=== PATIENT | male | born 1975 | race African-American/Black ===

== ENCOUNTER 2021-07-21 18:32 | Inpatient (IN) | payer OTHER ==
[~2021-07-21] VITALS: Ht 167.6 cm; Wt 74.6 kg
--- NOTE | ~2021-07-21 | EMS ---
[address] [address] EMS Patient Care Report Name: NARENDRA DUFFY Room #: PRE M.R.#: [id number] Admission: Attend Phys: Discharge: Date of : 79 Report #: [id number] THIS REPORT FOR: //name// Report Transmitted: 07/21/2021 17:58 EMS Care Summary [facility]ident [id number] @ 07/21/2021 17:50 Incident Location [address] [place] [address] Patient NARENDRA DUFFY Male, 45 Years 1975 Patient Address [address] [place] [id number] Patient History Hypertension (HTN), Patient Allergies No known allergies, Patient Medications None Reported, Chief Complaint Weakness Disposition Transported No Lights/Archer Dispatch Reason Allergic Reaction/Stings Transported To [facility] Narrative Called to the scene for allergies. Risa Ferrara responded and arrived on scene to find a 45 year old male A&Ox3 complaining of weakness and numbness in his face and right fingers. He stated he has had this feeling a long time ago but never went to the doctor before and that it was a long time ago. [facility] [address] [place] [address] EMS Patient Care Report Name: NARENDRA DUFFY Room #: [facility] Brittany#: [id number] Admission: Attend Phys: Discharge: Date of : 79 Report #: [id number] The patients vitals where obtained and maintained. An adult assessment was completed and a stroke test was performed (negative). I started an IV and did a blood glucose test. The patient had good glass technologist, no drift, but his left eye was slightly droopy. The abnormal complaint was the tingling in his right fingers. The patient stated he had not had much fluids in the last few days and little food. The patients skin was cool to the touch but the patient stated his had just put cold compresses all over his upper body and head. The family made it very difficult to get any information on scene. The patients work of breathing was normal and skin color was normal. The patient stated he was beginning to feel better with fluids and his headache had dissipated during transport. The patient stated he did still feel a little dizzy but overall just very weak which came on suddenly at the kitchen table and had only gotten a little better since we arrived. The patient had minimal food at the dinner table this evening which was a normal weekly meal with the only thing out of the ordinary being a drink of a cocktail his brother gave him about an hour prior to calling 911, which he told me about right before we pulled into the ER. Originally I was treating for stroke on scene until after he was able to stand on his own to sit on the cot and his stroke test only had a droopy left eye. I began to treat for a possible allergic reaction watching the patients breathing and overall appearance. However, the patient stated his tingling had gone away during transport and the only thing was he was still feeling weak. The patients left eye appeared to not be as droopy as it was on scene. All information was relayed to the hospital during the radio report and again upon arrival. The patient was transported to the hospital of his choice. Patient care was transferred to the receiving nurse upon arrival. Initial Vitals @18:05P: 64,R: 16,Pain: 0/10,SpO2: 99,MD Suspected: false @17:58P: 60,R: 16,Pain: 0/10,GCS: 15,Glucose: 116,SpO2: 100,MD Suspected: false @18:20P: 60,R: 16,BP: 172/106,Pain: 0/10,GCS: 15,CO: 2,SpO2: 100,Revised Trauma: 12, @17:58P: 59,R: 16,BP: 186/105,Pain: 0/10,GCS: 15,SpO2: 99,Revised Trauma: 12, @18:11P: 60,R: 16,BP: 179/115,Pain: 0/10,GCS: 15,SpO2: 99,Revised Trauma: 12, Impression Generalized Weakness Procedures @17:58ALS AssessmentResponse: UnchangedSucceeded@18:06Normal Saline (.9% NaCl) 500cc (18 ga) Site: Antecubital-LeftResponse: UnchangedSucceeded@18:0212-Lead ECGResponse: UnchangedSucceeded@18:003-Lead ECGResponse: [address] [address] EMS Patient Care Report Name: TATINARENDRA Room #: PRE M.RElisa#: [id number] Admission: Attend Phys: Discharge: Date of : 79 Report #: [id number] UnchangedSucceeded@18:0512-Lead ECG Timeline 17:49,Call Received 17:49,Psap Call 17:50,Dispatched 17:54,En Route 17:55,Initial Responder On Scene 17:55,On Scene 17:57,At Patient 17:58,BP: / M,PULSE: 60,RR: 16 R,SPO2: 100 Ox,ETCO2: ,B,PAIN: 0,GCS: 15, 17:58,ALS Assessment,Response: UnchangedSucceeded, 17:58,BP: 186/105 M,PULSE: 59,RR: 16 R,SPO2: 99 Ox,ETCO2: ,BG: ,PAIN: 0,GCS: 15, 18:00,3-Lead ECG,Response: UnchangedSucceeded, 18:02,12-Lead ECG,Response: UnchangedSucceeded, 18:05,12-Lead ECG, 18:05,BP: / M,PULSE: 64,RR: 16 R,SPO2: 99 Ox,ETCO2: ,BG: ,PAIN: 0,GCS: , 18:06,Normal Saline (.9% NaCl) 500cc 18 ga Site: Antecubital-Left,Response: UnchangedSucceeded, 18:08,Depart Scene 18:11,BP: 179/115 M,PULSE: 60,RR: 16 R,SPO2: 99 Ox,ETCO2: ,BG: ,PAIN: 0,GCS: 15, 18:20,BP: 172/106 M,PULSE: 60,RR: 16 R,SPO2: 100 Ox,ETCO2: ,BG: ,PAIN: 0,GCS: 15, 18:24,At Destination 18:51,Call Closed Disclaimer v1.1 Copyright 2020 [employer] This EMS Care Summary contains data elements from the applicable legal record (which may be displayed differently). It is designed to provide pertinent information for the following purposes: continuity of care, clinical quality, and state data reporting. The complete legal record is available to ED staff and administrators of the receiving hospital in [employer]'s Patient Tracker. All data is provided "as is."
[2021-07-21 18:34] VITALS: BP 189/113
[2021-07-21 19:12] LABS: ABSOLUTE NEUTROPHILS 3.5 thou/uL (1.4-8.2); BASOPHILS 0.3 % (0.0-2.0); EOSINOPHILS 4.3 % (0.0-3.0); HEMATOCRIT 40.8 % (42.0-52.0); MCHC 34.4 g/dL (28.0-37.0); MCV 87.3 fL (80.0-100.0); MONOCYTES 7.9 % (1.0-8.0); PLATELET COUNT 187 thou/uL (150-400); POLYS 58.5 % (36.0-66.0); RBC 4.67 mil/uL (4.50-6.00); RDW 12.5 % (10.5-14.5); WBC 6.1 thou/uL (4.0-11.0)
[2021-07-21 19:19] LABS: CALCIUM 8.8 mg/dL (8.5-10.1); CREATININE 0.8 mg/dL (0.7-1.3); POTASSIUM 3.6 mmol/L (3.5-5.1)
[2021-07-21 19:29] LABS: ALBUMIN 3.7 g/dL (3.4-5.0); TOTAL BILIRUBIN 0.5 mg/dL (0.2-1.0); TOTAL PROTEIN 8.2 g/dL (6.4-8.2)
[2021-07-21 19:49] LABS: APTT 27.7 Seconds (24.5-32.8); INR 1.09; PROTIME 11.8 Seconds (10.5-12.1)
[2021-07-21 20:43] LABS: AMP/METHAMP Negative (Negative); BARBITURATES Negative (Negative); BENZODIAZEPINES Negative (Negative); COCAINE Negative (Negative); METHADONE Negative (Negative); OPIATES Negative (Negative); PCP Negative (Negative)
--- NOTE | 2021-07-21 23:34 | NUR ---
I SPOKE TO JENNIFER IN LAB. RESULTS OF COVID NOW SWAB ARE STILL PENDING. WILL TRANSFER TO CCU WHEN RESULTS AVAILABLE.
[2021-07-22] VITALS (8 sets, daily range): BP systolic 145–169; BP diastolic 83–105
--- NOTE | 2021-07-22 02:23 | NUR ---
ASSUMED CARE OF PT AT 0030 FROM THE ED, PT A/O X 4 AND DROWSY. ASSESSMENT COMPLETED NOTED. ADMIT NIH SCORE OF 3, NG TUBE IN PLACE IN RIGHT NARE, CLAMPED. SX IS AVAILABLE IN ROOM. PT DENIES PAIN BUT C/O NAUSEA AND DIZZINESS. PT CONTINUES TO COUGH UP THICK WHITE ORAL SECREATIONS D/T TROUBLE SWALLOWING, NO DROOLING OR APHASIA NOTED. PT HAS MILD MUMMBLED SPEECH D/T DROWSINESS. WILL CONTINUE TO WORK TOWARDS PT'S POC.
--- NOTE | 2021-07-22 03:54 | NUR ---
PROGRESS PT ALERT AND ORIENTED VERY LETHARGIC. NG TO RIGHT NARE PT SPITTING FREQUENTLY. STILL REPORTS NUMBNESS TO LEFT ARM AND HAND. NOT OOB SO FAR THIS SHIFT. BP REMAINS HIGH 156/96. NIH SCORE REMAINS 3. TELE INTACT READING SR. IV TO LAC SL FIELD STICK. IV TO LF WITH THIAMINE AND FLUSH BAG RUNNING NO URINE OUTPUT SO FAR THIS SHIFT. SCD'S AND CONTINUOUS PULSE OX APPLIED ORDERED. CONTINUE TO MONITOR.
[2021-07-22 04:37] LABS: ANION GAP 8 mmol/L (7-16); BUN 6 mg/dL (7-18); CALCIUM 8.7 mg/dL (8.5-10.1); CHLORIDE 99 mmol/L (98-107); CHOLESTEROL 225 mg/dL (<200); CO2 29 mmol/L (21-32); CREATININE 0.8 mg/dL (0.7-1.3); GLUCOSE 144 mg/dL (74-106); HDL CHOLESTEROL 47 mg/dL (>40); LDL CHOLESTEROL 171 mg/dL (<100); SODIUM 136 mmol/L (136-145); TC:HDL 4.8 Ratio (Not establshd); TRIGLYCERIDE 36 mg/dL (<150); VLDL 7 mg/dL (<40)
[2021-07-22 04:51] LABS: SERUM ASSESSMENT Clear
--- NOTE | 2021-07-22 14:29 | NUR ---
I have reviewed the documentation by Sandrita Solares from 07/22/21 to 07/22/21 and I concur with it. HELEN MARSH
--- NOTE | 2021-07-22 14:35 | NUR ---
met with patient, mother at bedside. Patient admits with dizziness/unable to swallow. 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 Patient reports and children in home. Patient reports independent with adls. Patient with ng tube. He reports once the dizziness is gone he will be indepenent. Patient reports he has health insurance and his was given wrong information from his employment. Patient reports when dizziness subsides he plans to call employment and sp with Laura. Teixeira in process of eval. Casemgt following.
--- NOTE | 2021-07-22 20:47 | NUR ---
Per TRAVEL MONEY ADVISOR, pt complaining of CP. Pt voiced pain is 2/10 sharp and dull. KOCH 2/10 pressure, radiating through Lside of face. EKG done. Dr Alcala paged. Awaiting reply.
[2021-07-23 01:06] LABS: GLYCOHEMOGLOBIN (HGB A1C) 5.7 % (4.8-5.6)
[2021-07-23 04:39] VITALS: BP 158/106
--- NOTE | 2021-07-23 06:14 | NUR ---
Pt NG tube de'd and replaced with dobhuf at 62 james. Placement confirmation pending xray reading by doc. Pt slept well this shift. PPN to LFA @ 80ml/hr. Pt's diastolic in the 100's. Per FOUNDATION DIRECTOR oncall, bolus 500ml NS. IV bolus currently infusing. Pt this am, denies KOCH and CP. Fall precaution in place. Call light within reach. Nursing to continue to monitor. Pt to transfer to ICU, pending bed availability. Call light within reach. Nursing to continue to monitor.
[2021-07-23 06:38] VITALS: BP 157/95
[2021-07-23 07:49] VITALS: BP 148/82
--- NOTE | 2021-07-23 08:04 | EKG ---
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 07/23/21 0804 [id number] 06 Jose C Marroquin MD, FACC /EPI
[2021-07-23 11:46] VITALS: BP 148/81
[2021-07-23 16:41] VITALS: BP 174/94
--- NOTE | 2021-07-23 17:22 | NUR ---
Spoke with . She has a copy of cards via email from [employer] employment. She attempted to forward email to [facility] but did not rec. She reports he has [employer] ID # [id number]. Updated utilization review. is aware 5N following wants to assure acute rehab aware.
[2021-07-23 19:52] VITALS: BP 142/82
[2021-07-24 00:11] VITALS: BP 123/72
[2021-07-24 05:09] LABS: HEMATOCRIT 44.2 % (42.0-52.0); HEMOGLOBIN 15.7 gm/dL (14.0-18.0); MCH 31.1 pg (26.0-34.0); MCHC 35.4 g/dL (28.0-37.0); MCV 87.9 fL (80.0-100.0); RBC 5.03 mil/uL (4.50-6.00); RDW 12.8 % (10.5-14.5); WBC 7.2 thou/uL (4.0-11.0)
[2021-07-24 05:53] LABS: CALCIUM 8.8 mg/dL (8.5-10.1); POTASSIUM 4.2 mmol/L (3.5-5.1)
--- NOTE | 2021-07-24 06:39 | NUR ---
Assumed pt's care beginning of this pm shift. Alert and oriented. Complained of intermittent KOCH. New 6fr dobhuff to L/nare at 63. Secured with steri strips. Placement confirmed with abd xray. Pt given tylenol and icepack for fever this am. Remains febrile. Pt performing self suctioning for sputum. Blood culture ordered. Lab called x2 to ensure culture was drawn. Pt's updated per request. Nursing to continue to monitor.
--- NOTE | 2021-07-24 06:51 | NUR ---
I have reviewed the documentation by Sandrita Solares from 07/23/21 to 07/23/21 and I concur with it. HELEN MARSH
[2021-07-24 08:37] VITALS: BP 139/83
[2021-07-24 11:00] VITALS: BP 142/79
--- NOTE | 2021-07-24 11:16 | 2DMMODE ---
[facility] [place] [address] 2 D/M-MODE ECHOCARDIOGRAM Name: NARENDRA DUFFY Room #: 215-P ADM IN M.R.#: [id number] Admission: 07/21/21 Attend Phys: Merlin Kay MD Discharge: Date of : 79 Report #: [id number] THIS REPORT FOR: cc: FAM - No family physician/PCP FAM - No family physician/PCP Rfaita Rahman MD ~ APPROVED REPORT Study performed: 07/24/2021 10:07:04 EXAM: Comprehensive 2D, Doppler, and color-flow Echocardiogram Patient Location: In-Patient Room #: 215 Status: routine BSA: 1.84 HR: 83 bpm Rhythm: NSR Other Information Study Quality: Good Indications CVA/TIA 2D Dimensions IVSd: 9.73 (7-11mm) LVOT Diam: 20.38 (18-24mm) LVDd: 38.19 mm PWd: 9.88 (7-11mm) Ascending Ao: 29.73 (22-36mm) LVDs: 27.30 (25-40mm) Left Atrium: 24.56 (27-40mm) Aortic Root: 29.66 mm Volumes Left Atrial Volume (Systole) Single Plane 4CH: 24.04 mL Aortic Valve AoV Peak Martin.: 2.60 m/s AO Peak Gr.: 27.03 mmHg LVOT Max P.06 mmHg LVOT Max V: 1.51 m/s NEERAJ Vmax: 1.89 cm2 Mitral Valve [facility] [address] [place] [address] 2 D/M-MODE ECHOCARDIOGRAM Name: TATINARENDRA Matias Room #: 215-P [facility] IN M.R.#: [id number] Admission: 07/21/21 Attend Phys: Merlin Kay, Discharge: Date of : 79 Report #: [id number] E/A Ratio: 0.8 MV Decel. Time: 380.14 ms MV E Max Martin.: 0.67 m/s MV A Martin.: 0.83 m/s MV PHT: 110.24 ms IVRT: 83.04 ms Pulmonary Valve PV Peak Martin.: 1.37 m/s PV Peak Gr.: 7.56 mmHg NH End Vmax: 1.00 m/s Tricuspid Valve TR Peak Martin.: 2.67 m/s RAP Estimate: 7.00 mmHg TR Peak Gr.: 28.45 mmHg RVSP: 35.00 mmHg Left Ventricle The left ventricle is normal size. There is normal LV segmental wall motion. There is normal left ventricular wall thickness. Left ventricular systolic function is normal. The left ventricular ejection fraction is within the normal range. LVEF is 60-65%. Right Ventricle The right ventricle is normal size. The right ventricular systolic function is normal. Atria The left atrium size is normal. Injection of bubbles documented no interatrial shunt. The right atrium size is normal. Aortic Valve The aortic valve is normal in structure. No aortic regurgitation is present. There is no aortic valvular stenosis. Mitral Valve The mitral valve is normal in structure. There is no mitral valve regurgitation noted. No evidence of mitral valve stenosis. Tricuspid Valve The tricuspid valve is normal in structure. Mild tricuspid regurgitation. Pulmonic Valve The pulmonary valve is normal in structure. There is no pulmonic valvular regurgitation. Great Vessels [facility] [address] [place] [address] 2 D/M-MODE ECHOCARDIOGRAM Name: NARENDRA DUFFY Room #: 215-P [facility] IN M.R.#: [id number] Admission: 07/21/21 Attend Phys: Merlin Kay, Discharge: Date of : 79 Report #: [id number] The aortic root is normal in size. IVC is normal in size and collapses >50% with inspiration. Pericardium There is no pericardial effusion. <Conclusion> The left ventricle is normal size. There is normal left ventricular wall thickness. Left ventricular systolic function is normal. The right ventricle is normal size. Injection of bubbles documented no interatrial shunt. The left atrium size is normal. The aortic valve is normal in structure. There is no mitral valve regurgitation noted. <ELECTRONICALLY SIGNED> By: Rafita Rahman MD 07/24/21 1116 111 1116 Rafita Rahman MD /INF
--- NOTE | 2021-07-24 11:21 | NUR ---
insurance information updated on face sheet. 5N to begin auth process. Updated patient and .
[2021-07-24 16:00] VITALS: BP 127/81
[2021-07-24 19:54] VITALS: BP 141/91
[2021-07-25 00:04] VITALS: BP 109/76
[2021-07-25 05:08] VITALS: BP 149/72
--- NOTE | 2021-07-25 06:21 | NUR ---
Assumed pt's care this pm shift. ALert and oriented x4. Meds given per emar. Dobhuff remains intact this shift. PPN to LFA @ 80ml/hr. Febrile this shift. PRN tylenol given supp this shift. Pt had 2 liquid large BMs. Up x1 to bsc. Bed change this shift. Fall precaution in place. Call light within reach. Will continue to monitor.
[2021-07-25 07:40] VITALS: BP 124/79
--- NOTE | 2021-07-25 09:53 | NUR ---
Agree with current tube feed order. If pt transfers to rehab, then change tube feed to bolus schedule of 1 can 2cal HN every 6hr with 250ml water flush 5x per day.
[2021-07-25 11:15] VITALS: BP 115/80
--- NOTE | 2021-07-25 12:13 | EKG ---
[place] [address] [address] 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: MOHINDER FONTANA : 1975 Requested By: Merlin Kay Order Number: [id number] MD: Jose C Marroquin Measurements Intervals [place] Rate: 68 P: -28 [place]: 161 QRS: 26 QRSD: 80 T: 10 QT: 414 QTc: 441 Interpretive Statements Sinus rhythm Septal infarct, age indeterminate Compared to ECG 07/22/2021 20:37:25 No significant changes Electronically Signed On 07-25-2021 12:13:02 CDT by Jose C Marroquin [email or web address] <ELECTRONICALLY SIGNED> By: Jose C Marroquin MD, [facility] 09/09/04 1213 37 37 Jose C Marroquin MD, [facility] /EPI
--- NOTE | 2021-07-25 12:13 | EKG ---
[place] [address] [facility] [place] [address] ELECTROCARDIOGRAM REPORT Name: NARENDRA DUFFY Room #: 215-P ADM IN M.R.#: [id number] Admission: 07/21/21 Attend Phys: Merlin Kay MD Discharge: Date of : 79 Report #: [id number] [facility] Test Date: 2021-07-22 Test Time: 20:37:25 Pat Name: NARENDRA DUFFY Department: Room: 215 P Gender: M [place] Support Specialist: MOHINDER FONTANA : 1975 Requested By: Merlin Kay Order Number: [id number] MD: Jose C Marroquin Measurements Intervals [place] Rate: 67 P: -7 [place]: 156 QRS: 29 QRSD: 82 T: 19 QT: 418 QTc: 442 Interpretive Statements Sinus rhythm Septal infarct, age indeterminate Compared to ECG 07/21/2021 19:07:46 No significant changes Electronically Signed On 07-25-2021 12:12:51 CDT by Jose C Marroquin [email or web address] <ELECTRONICALLY SIGNED> By: Jose C Marroquin MD, [facility] [id number] Jose C Marroquin MD, [facility] /EPI
--- NOTE | 2021-07-25 12:29 | NUR ---
Patient to rec peg tube Wednesday. 5N following and plan to seek auth once stable.
[2021-07-25 15:50] VITALS: BP 132/94
--- NOTE | 2021-07-25 17:13 | NUR ---
PT ALERT AND ORIENTED TIMES FOUR. VSS. PPN INFUSING PER ORDER. PT DENIES PAIN. SOA ON EXCERTION. RIGHT NARE DOBHOFF TUBE FEEDING STARTED PT TOLERATING WELL. PT WORKED WELL WITH PT/OT PT UP SITTING IN THE CHAIR. PT AT BEDSIDE THIS MORNING. WILL CONTINUE TO MONITOR.
[2021-07-25 19:50] VITALS: BP 131/75
[2021-07-26 00:05] VITALS: BP 119/75
--- NOTE | 2021-07-26 01:57 | NUR ---
PROGRESS PT A/O X4, UP WITH MOD ASSIST FOR SAFETY. VSS. PT'S HAS DOBHOFF IN RIGHT NARE INFUSING JEVITY 1.5 TF AT A RATE OF 20CC/HR, NO RESIDUAL NOTICED.. PPN INFUSING IN PIV IN LF AT A RATE OF 80CC/HR. PT DENIES PAIN. STATES JUST GETTING THE PPN AND TUBE FEEDING, HE FEELS MORE ENERGY AND MORE HIMSELF. VOIDING QS AND HAD ONE WATERY BROWN BM. CONTINUE POC.
--- NOTE | 2021-07-26 04:49 | NUR ---
PT HAD HEAD OF BED DOWN TO 10 DEGREES AND HAD A SMALL AMOUNT OF REFLUX. CALLED NURSE AND HE WAS AFRAID THAT TUBE FEEDING WAS IN MOUTH. DISCUSSED IMPORTANCE OF KEEPING HOB ELEVATED TO 30 DEGREES TO PROTECT HIM FROM ASPIRATION. RESIDUAL CHECKED X2 WITH NO RETURN OF TUBE FEEDING. ABDOMEN SOFT NON- TENDER AND NOT DISTENDED, PT STATES HE DOESN'T FEEL TOO FULL. BED LOCKED TO 30 DEGREES AND PT AWARE OF PRECAUTIONS.
[2021-07-26 06:17] VITALS: BP 118/77
[2021-07-26 07:12] VITALS: BP 129/77
[2021-07-26 11:27] VITALS: BP 125/76
[2021-07-26 15:07] VITALS: BP 133/70
--- NOTE | 2021-07-26 18:28 | NUR ---
Pt c/o nausea - IV zofran given per JAN. Pt reports relief. TF increased this morning from 20 to 30mL/hr, no risidual noted today. NIH scale documented per flow sheet. Pt still has some facial palsy, states he now feels tingling on his L face, denies numbness. Mild ataxia noted with LUE when asked to touch tip of nose. NIH scale 3 for each assessment today. No other neuromuscular deficits noted.
[2021-07-26 20:15] VITALS: BP 118/72
[2021-07-27 06:18] VITALS: BP 124/85
--- NOTE | 2021-07-27 06:38 | NUR ---
Up in the recliner chair at start of shift. TF infusing at 40 ml/hr. Around 0015 he called for help as he was vomiting ( clear and some yellow specks in wash cloth. Requested tube feeding to be turned off for the night as he's feeling sick of his stomach and can't tolerate it. Zofran given with good relief. He stated he got some sleep. No change in neuro status , left facial droop and decrease sensation on right side of his body. Tolerating room air well though he stated he gets short of breath with exertion. Uses yankuer to suction his mouth after coughing. He requested tube feeding to resume after he did his exercise that will require him to be on his stomach. Cont. on enhanced precaution , afebrile.
[2021-07-27 07:36] VITALS: BP 138/81
--- NOTE | 2021-07-27 08:44 | O ---
[facility] [place] [address] OPERATIVE REPORT Name: NARENDRA DUFFY Room #: 359-P ADM IN M.R.#: [id number] Admission: 07/21/21 Attend Phys: Merlin Kay MD Discharge: Date of : 79 Report #: [id number] THIS REPORT FOR: cc: FAM - No family physician/PCP FAM - No family physician/PCP Robbie Pope MD ~ DATE OF SERVICE: 07/23/2021 SURGEON: Robbie Pope MD PREOPERATIVE DIAGNOSES: 1. Rule out vocal cord dysfunction. 2. History of recent cerebrovascular accident. 3. Left medullary syndrome. POSTOPERATIVE DIAGNOSES: 1. Rule out vocal cord dysfunction. 2. History of recent cerebrovascular accident. 3. Left medullary syndrome. PROCEDURES PERFORMED: Flexible nasopharyngoscopy and laryngoscopy. INDICATIONS: The patient is a 45-year-old male who suffered a cerebrovascular event on 07/21. The patient refused TPA and has been on dual antiplatelet therapy with some improvement of symptoms. He has had significant dysphagia. I was asked to evaluate his vocal cord function. The patient has had no complaints of voice. DESCRIPTION OF PROCEDURE: In the patient's hospital room, he was placed into his bed in an upright position. Topical anesthesia was achieved with a 4% lidocaine and 1% Mono-Synephrine nasal spray. After an appropriate period, a flexible laryngoscope was introduced through the right naris and advanced into the nasopharynx. Complete examination was made of nasopharynx, oropharynx, oral cavity, hypopharynx and larynx. There was a Dobbhoff tube present in the left naris extending through the cricopharyngeus without pooling of secretions. Vocal cords were mobile normally with no apparent dysfunction or mucus secretion. Through the introitus of the vocal cords, no evidence of any stenosis. There was no mass lesion. Laryngoscope was then removed. The patient tolerated the procedure well. There were no complications. <ELECTRONICALLY SIGNED> By: Robbie Pope MD 07/27/21 0844 1511 1534 Robbie Pope MD /nt
--- NOTE | 2021-07-27 08:44 | HC ---
[facility] [place] [address] CONSULTATION Name: NARENDRA DUFFY Room #: 359-P ADM IN M.R.#: [id number] Admission: 07/21/21 Attend Phys: Merlin Kay MD Discharge: Date of : 79 Report #: [id number] THIS REPORT FOR: cc: GERDA - No family physician/PCP GERDA - No family physician/PCP Robbie Pope MD ~ DATE OF SERVICE: 07/23/2021 SURGEON: Robbie Pope MD REASON FOR CONSULTATION: Laryngeal and vocal cord evaluation post cerebrovascular accident. HISTORY OF PRESENT ILLNESS: The patient is a 45-year-old male admitted via the Emergency Department on 07/21/2021 complaining of left-sided numbness of his face and right-sided tingling of his arm. In addition, he had noticed some mild weakness of the left face. The patient was evaluated by Neurology. Initial CT angiogram was negative. Per the charts, the patient had been having a headache in his frontal and parietal area for several days. He then began to notice dizziness and swallowing difficulty as well as the numbness. 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 TPA was recommended, but apparently refused by the patient. The patient was anticoagulated with aspirin and Plavix and admitted. The patient has persisted with dysphagia and has a Dobbhoff tube in place and PEG tube has been discussed. The patient's facial paresis has resolved. His numbness has almost improved back to normal on the left and the symptoms in his right arm have completely resolved. He has had no difficulty with speech and does not think that he has had a change in voice. Dr. Alcala had recommended laryngoscopy to assess vocal cords. 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 He continues on dual antiplatelet therapy. PAST MEDICAL HISTORY: Significant for subclavian artery thrombosis, this history is a little vague; hyperlipidemia. He does not have significant hypertension. SOCIAL HISTORY: The patient denies use of tobacco or alcohol. He is with his nephew in his hospital room; is conversant, awake and alert. FAMILY HISTORY: Negative for stroke. REVIEW OF SYSTEMS: He is complaining of dysphagia with some sore throat with a Dobbhoff tube in place. The patient states that the numbness is much improved and he is pleased with that. Remaining 12-point review of systems is negative. PHYSICIAN EXAMINATION: [facility] [address] [place] [address] CONSULTATION Name: NARENDRA DUFFY Room #: 359-P [facility] IN .R.#: [id number] Admission: 07/21/21 Attend Phys: Merlin Kay MD Discharge: Date of : 79 Report #: [id number] GENERAL: Well-developed 45-year-old male seen in his hospital room. His nurse is present. HEENT: Otologic exam shows a normal canals, normal tympanic membrane. Nasal exam shows Dobbhoff tube and placed on the left. Oral cavity, normal mucosa and intact dentition. NECK: Trachea is midline. There is no adenopathy, no thyromegaly. No carotid bruits. NEUROLOGIC: Examination of cranial nerve V shows some mild asymmetry in the distribution of V1, V2, V3, left greater than right. The patient has no evidence of any facial nerve paresis. No evidence of any dysfunction of cranial nerves IX, X or XII. Hypopharynx was examined with a flexible endoscopy after the topical use of lidocaine. Vocal cords are normally mobile. This was shown to his nurse as well. Dobbhoff extends through the cricopharyngeus. There was no pooling of secretions. No ulcerations or other mass. ASSESSMENT: Lateral medullary syndrome, left side, with improvement on antiplatelet therapy. It does not look like the patient received TPA. The patient has persistent dysphagia, likely secondary to involvement of the vagal nerve. I do not see dysfunction of cranial nerve IX and XII. Cranial nerve VII involvement has improved. Cranial nerve V is improved, but not resolved on the left side. PLAN: No specific intervention from otolaryngologic standpoint at this point. Patient can continue supportive care with Dobbhoff or switch to PEG tube as this may take several weeks or even months for improvement. Video swallow study can be attempted with the patient's symptoms merit. I appreciate the consultation and ability to share in his evaluation. We will defer to Neurology treatment of his cerebrovascular accident. I will not plan to follow along with you, but available if there is a change in his clinical status. <ELECTRONICALLY SIGNED> By: Robbie Pope MD 07/27/21 [id number] Robbie Pope MD /nt
[2021-07-27 11:34] VITALS: BP 123/77
[2021-07-27 13:39] LABS: BASOPHILS 0.1 % (0.0-2.0); HEMATOCRIT 45.4 % (42.0-52.0); HEMOGLOBIN 15.4 gm/dL (14.0-18.0); LYMPHOCYTES 7.5 % (24.0-44.0); MCH 29.9 pg (26.0-34.0); MCHC 33.8 g/dL (28.0-37.0); MCV 88.2 fL (80.0-100.0); MONOCYTES 5.4 % (1.0-8.0); PLATELET COUNT 208 thou/uL (150-400); RBC 5.14 mil/uL (4.50-6.00); RDW 12.3 % (10.5-14.5); WBC 6.9 thou/uL (4.0-11.0)
[2021-07-27 13:57] LABS: CALCIUM 9.1 mg/dL (8.5-10.1); POTASSIUM 4.8 mmol/L (3.5-5.1)
[2021-07-27 16:03] VITALS: BP 124/84
--- NOTE | 2021-07-27 18:43 | NUR ---
ASSUMED PATIENT CARE AT 0700. A/O X4. C/O NAUSEA. TF ON HOLD. NIH X2. PATIENT C/O LEFT EYE HAS BLURRY VISION. LEFT SAID WEAKNESS. SOB WITH EXERTION . WILL NPO AFTER MIDNIGHT TO HAVE PEG PLACED. WILL KEEP MONITOR.
[2021-07-27 20:16] VITALS: BP 128/86
[2021-07-28 04:06] LABS: POTASSIUM 4.2 mmol/L (3.5-5.1)
--- NOTE | 2021-07-28 04:27 | NUR ---
Patient making some progress towards outcome goals. Oxygenation optimal on room air. Neuro unchanged. NPO, tube feedings on hold, For PEG placement today and patient expresses understanding. Vital signs and rhythm stable.
[2021-07-28 04:33] LABS: HEMATOCRIT 44.2 % (42.0-52.0); HEMOGLOBIN 15.3 gm/dL (14.0-18.0); MCH 30.4 pg (26.0-34.0); MCHC 34.6 g/dL (28.0-37.0); MCV 87.6 fL (80.0-100.0); RBC 5.05 mil/uL (4.50-6.00); RDW 12.5 % (10.5-14.5); WBC 5.1 thou/uL (4.0-11.0)
[2021-07-28 05:12] VITALS: BP 115/70
[2021-07-28 07:43] VITALS: BP 133/83
--- NOTE | 2021-07-28 08:24 | NUR ---
I have reviewed the documentation by Sandrita Solares from 07/24/21 to 07/24/21 and I concur with it. HELEN MARSH
--- NOTE | 2021-07-28 16:19 | NUR ---
NILS reviewed chart and spoke with nursing and attending physician. Pt was transferred to from on 07/25 after having positive COVID test. Pt placed in Enhanced Isolation. Pt is afebrile and not requiring O2. Pt is on IV steroids. Pt had peg tube placed earlier today. NILS discussed case with [employer] rehabilitation construction specialist, who will submit for authorization tomorrow. NILS is following to assist as needed with discharge planning.
--- NOTE | 2021-07-28 18:35 | NUR ---
ASSUMED PATIENT CARE AT 0700. A/O X4. WILL HAVE PEG PLACED TOMORROE.
[2021-07-28 19:06] LABS: ANA INTERPRETATION Negative (())
[2021-07-28 20:25] VITALS: BP 127/68
--- NOTE | 2021-07-29 04:13 | NUR ---
Pt. feeling down and frustrated that peg tube placement did not happen yesterday but stated he understands. Given emotional support to help lift his spirits up which he is appreciative of. Kept NPO , PPN infusing. Tolerating room air well with no respiratory distress. Cont. on enhanced precaution , remains afebrile. No change in neuro status , left facial droop and decrease sensation on right side of his body. Right arm IV infiltrated. New IV placed on left upper arm. Encouraged pt. to elevate right arm , pillows provided. He slept some. Rheumatology consult will be called later this am. called to get an update.
[2021-07-29 05:21] LABS: CALCIUM 8.9 mg/dL (8.5-10.1); CREATININE 1.1 mg/dL (0.7-1.3); POTASSIUM 4.7 mmol/L (3.5-5.1)
[2021-07-29 05:24] LABS: HEMATOCRIT 45.9 % (42.0-52.0); HEMOGLOBIN 15.5 gm/dL (14.0-18.0); MCH 29.6 pg (26.0-34.0); MCHC 33.7 g/dL (28.0-37.0); MCV 87.9 fL (80.0-100.0); RBC 5.22 mil/uL (4.50-6.00); RDW 12.6 % (10.5-14.5); WBC 8.1 thou/uL (4.0-11.0)
[2021-07-29 05:30] VITALS: BP 119/70
[2021-07-29 07:35] VITALS: BP 124/67
--- NOTE | 2021-07-29 16:03 | NUR ---
NILS reviewed chart and spoke with nursing and attending physician. Pt remains in Enhanced Isolation due to COVID. Pt had peg tube placed today. SW discussed case with [facility] rehab consultant. [employer] will submit for auth when pt is tolerating tube feeding. NILS spoke with pt's via phone to provide update and discuss discharge plan. Pt's is agreeable. SW is following to assist as needed with discharge planning.
[2021-07-29 16:32] VITALS: BP 137/77
--- NOTE | 2021-07-29 18:43 | NUR ---
PT HAD PEG TUBE PLACED THIS SHIFT. PT WAS GROGGY POST PROCEDURE. HAS PRN MEDICATION IN USE. PT TOLERATED TUBE ADMINISTRATION OF MEDICATION. PPN CONTINUES, PT WILL NEED DIET PER DIETARY 07/30/21.
[2021-07-29 20:57] VITALS: BP 126/82
[2021-07-29 21:06] LABS: COMPLEMENT-C3 206 mg/dL (82-167); COMPLEMENT-C4 44 mg/dL (12-38)
[2021-07-30 04:02] VITALS: BP 147/86
--- NOTE | 2021-07-30 04:53 | NUR ---
Pt. c/o abdominal soreness and pain especially when coughing S/P peg placement. Medicated for pain with some relief. Also encouraged to use pillow to support his abdomen when coughing and stated that also helped. Ice pack also provided. He slept fair during the night. No change in neuro status. Tolerating room air well with O2 sat up to 97%. He uses yankuer to suction his mouth. Zofran given at HS x1 with good relief. Kept NPO and peg clamped at this time. Cont. on enhanced precaution , afebrile. Voiding per urinal.
[2021-07-30 09:00] VITALS: BP 139/87
--- NOTE | 2021-07-30 15:02 | NUR ---
CALLED [facility] TO START AUTHORIZATION PROCESS FOR ACUTE REHAB. SPOKE / Dec. WHO PROVIDED REF# [id number] AND FAX #[phone] IN WHICH TO SEND CLINICAL INFORMATION. CLINICAL INFORMATION FAXED BY THIS INDIVIDUAL SMALL GROUP INSTRUCTOR TO [facility] PRE-CERT DEPARTMENT. AWAITING RESPONSE.
--- NOTE | 2021-07-30 15:16 | NUR ---
SW reviewed chart and spoke with nursing and attending physician. Pt remains in Enhanced Isolation due to COVID. Pt had peg tube placed yesterday. [facility] submitted for insurance authorization today for pt to be admitted as rehab status. Pt will remain on 3W until he is out of isolation. NILS is following to assist as needed with discharge planning.
[2021-07-30 15:42] VITALS: BP 136/86
--- NOTE | 2021-07-30 20:07 | NUR ---
RN ASSUMED PT'S CARE AT 0700-1900PM, PT IS A&OX4, PT IS ON ROOM AIR , BUT PT STILL HAS SERCATION AND NEEDS REAL SUCTION, PT STRATS TUBE TODAY , PT IS TOLERATIVE TUBE FEEDING 30ML/HR, PT'S VS ARE STABLE AT DAY SHIFT.
[2021-07-30 20:10] VITALS: BP 126/86
--- NOTE | 2021-07-31 04:54 | NUR ---
Pt. c/o abd pain maureen when coughing. Hydrocodone given with good relief. Slept fair during the night. No change in neuro status. Tolerating room air well and suctions mouth with yankuer. Kept NPO , TF infusing at 30 ml/hr with 25 ml gastric residual. No c/o nausea or vomiting. Voiding per urinal and gets up to commode at times. Making some progress towards care plan goals.
[2021-07-31 05:11] LABS: HEMOGLOBIN 14.6 gm/dL (14.0-18.0); MCH 30.2 pg (26.0-34.0); MCHC 34.6 g/dL (28.0-37.0); MCV 87.4 fL (80.0-100.0); RBC 4.81 mil/uL (4.50-6.00); RDW 12.2 % (10.5-14.5); WBC 11.1 thou/uL (4.0-11.0)
[2021-07-31 05:20] VITALS: BP 119/66
[2021-07-31 05:24] LABS: CALCIUM 8.6 mg/dL (8.5-10.1); CREATININE 0.9 mg/dL (0.7-1.3); POTASSIUM 4.9 mmol/L (3.5-5.1)
[2021-07-31 08:00] VITALS: BP 128/79
--- NOTE | 2021-07-31 09:43 | NUR ---
Change TF to bolus feddings. TwoCal HN, 4 cans/day (0700, 1100, 1500, 1900), with 125 ml H2O flushes before and after each can to provide 1920 kcal, 80 gm PRO, 1664 ml fluid.
--- NOTE | 2021-07-31 10:52 | HC ---
[facility] [place] [address] CONSULTATION Name: NARENDRA DUFFY Room #: 359-P ADM IN M.R.#: [id number] Admission: 07/21/21 Attend Phys: Merlin Kay MD Discharge: Date of : 79 Report #: [id number] THIS REPORT FOR: cc: GERDA - No family physician/PCP GERDA - No family physician/PCP Jameson Alcala MD ~ DATE OF SERVICE: 07/21/2021 HISTORY OF PRESENT ILLNESS: This is a 45-year-old male patient whose consultation was requested by Emergency Room physician. They had given me a history on the phone that this patient was having a left facial palsy and numbness on the left side of the face and right side of the body. They estimated the stroke scale between 4 and 5. They had already done his CT angiogram of the head and neck and as I understood from them on the phone, that was unremarkable. I asked them to talk to the patient about TPA and they did, the patient declined TPA as I understand from them, but he was given more time to consider them. Then I came and saw this patient and talked to Emergency Room physician multiple times and I had talked to the patient and the family in detail. The history I got that the patient was having headache for several days. Headache was in the frontal area as well as in the parietal area and it was not that much in the neck area. Around 5:30 today, he had an acute onset of dizziness, swallowing difficulty and he had numbness on the left side of the face as well as on the right side of the body. His symptoms were about the same since that time. Review of systems has indicated that this patient apparently had some thrombosis in the subclavian artery in the past. He could not give me any further details in that regard. He says otherwise he is pretty healthy and he denies the use of drugs. When he came in, his blood pressure was high at 189/113. REVIEW OF SYSTEMS: A 14-point review of system was carried out and it was mostly noncontributory. Because of the urgency of the system, it was done in a rapid fashion, but he was not complaining of any shortness of breath. Records indicate he had an allergic reaction because he was drinking some [place], but that apparently is probably the coincidence. PAST MEDICAL HISTORY: Negative for any stroke. SOCIAL HISTORY: He tells me he does not smoke or use any alcohol. FAMILY HISTORY: According to him is negative for early onset of CVA. PHYSICAL EXAMINATION: Indicates he was alert, responsive, able to follow simple and complex commands. He was having a lot of swallowing difficulty and he has [facility] [address] [place] [address] CONSULTATION Name: NARENDRA DUFFY Room #: 359-P [facility] IN M.R.#: [id number] Admission: 07/21/21 Attend Phys: Merlin Kay MD Discharge: Date of : 79 Report #: [id number] to constantly suck out his saliva. Does not look like there was any alteration of his mentation. His speech may be slightly dysarthric, but that may be also because of his inability to swallow saliva. Otherwise, higher function looks unremarkable. Cranial nerve examination II-XII was carried out. 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 He has ptosis there. His pupil looks smaller there and he complained of subjective decrease in pinprick. He does appear to have a left facial palsy also, which is upper motor neuron type. He may be a trace weak on the right hand, difficult to tell because he is complaining of sensory problem there. He has severe swallowing difficulty. I could not look at his fundus and there is no meningeal sign in this patient, that is all the neurology examination which we carried out. His respiratory examination is unremarkable. His blood pressure when he came in was running high and outside the range for giving him TPA. Emergency Room physician loaded to the TPA range, but unfortunately, the patient refused TPA. I gave a call to Dr. Hayden and asked him to review the films with me and it looks like the patient's vertebrals are pretty small and the left one is somewhat smaller than the right one. Dissection cannot be excluded. It is right on the foramen magnum where it becomes small, so it is at the border of intracranial and extracranial region. Clinically, this patient appeared to have lateral medullary syndrome. He has pretty impressive findings for that. Emergency Room physician talked to him about TPA and recommended that. I recommended the same thing, but even after a lot of discussion with the patient, he still refused TPA. His family is here, they also refused TPA. The patient is competent to make his decision and we have discussed all aspects of it with the patient. In this situation, I recommended that he receives aspirin suppository. We should also proceed with 600 mg of Plavix if we can in this patient. Emergency Room physician is going to put a tube in and then confirm the position of the tube to make sure it is in the stomach and then give him 600 mg of Plavix. I had talked to them virtually all aspects of the stroke. I have asked that not for many studies have been directly conducted on the lateral medullary syndrome, but they have been conducted on ischemic stroke in general. The recommendation in that regard if the patient comes within 3 hours or even within 4-1/2 hours to give TPA. The patient refused that even after multiple discussions. Therefore, I asked the Emergency Room physician to allow the permissive hypertension now and try to bump up his blood pressure some by giving him 500 mL of normal saline bolus and then giving him dual antiplatelet therapy. I had discussed with them the risks associated with TPA as well as other therapy including aspirin and Plavix. Any one of them can make the stroke hemorrhagic, but the chances of strokes becoming hemorrhagic decreases as the intensity of [facility] [address] [place] [address] CONSULTATION Name: NARENDRA DUFFY Room #: 359-P [facility] IN M.R.#: [id number] Admission: 07/21/21 Attend Phys: Merlin Kay MD Discharge: Date of : 79 Report #: [id number] antithrombotic therapy decreases. He understands all that, he is agreeable with dual antiplatelet therapy, but was not agreeable for TPA for some reason, even after multiple discussions with him. This patient's blood pressure should be kept high. He should be kept hydrated and he needs to be closely monitored. Multiple acute complication has been described in patients with a lateral medullary syndrome and we need to closely monitor him. He had multiple questions as to when can he go back to work and I told him that this swallowing problem lasts for a long time and he probably land up having tube feeding for some time and that is the typical course for a lateral medullary syndrome and some time there is something called lateral medullary syndrome plus and they even cause more symptoms. Extracranial dissections of the vertebral artery, even if it is present, is typically treated with antiplatelet first and can be treated with anticoagulation if the symptoms become worse. It is somewhat the discretion which therapy a person wants to use as the data indicates there is not a significant difference between both. I discussed all those aspects with the patient. I spent more than 70 minutes of time taking care of this patient and majority was spent counseling him, reviewing his study with the radiologist and coordinating his care by talking to multiple other health manager long term care. Thank you very much for this referral and if you have any questions, please feel free to contact me. <ELECTRONICALLY SIGNED> By: Jameson Alcala MD 07/31/21 1052 15 54 Jameson Alcala MD /nt
[2021-07-31] MEDS ORDERED: VITAMINC500 PO (14:04)
[2021-07-31] MEDS ORDERED: ACETAMINOPHEN650 MG RECTAL (14:04)
[2021-07-31] MEDS ORDERED: ZINC SULFATE50 MG PO (14:04)
[2021-07-31] MEDS ORDERED: VITAMIN D325 MC2 PO (14:04)
[2021-07-31] MEDS ORDERED: ENOXAPARIN40 MG/0.1 SUBQ (14:04)
[2021-07-31] MEDS ORDERED: MIRALAX17 GM PO (14:04)
[2021-07-31] MEDS ORDERED: LIPITOR40 MG PER TUBE (14:04)
[2021-07-31] MEDS ORDERED: PLAVIX 75 MG TA75 M1 PER TUBE (14:04)
[2021-07-31] MEDS ORDERED: BAYER CHEWABLE81 MG PO (14:04)
[2021-07-31] MEDS ORDERED: VITAMIN B-1100 M2 PER TUBE (14:04)
[2021-07-31] MEDS ORDERED: PREDNISONE 10 M10 M1 PO (14:07)
[2021-07-31] MEDS ORDERED: PEPCID20 MG PO (14:09)
--- NOTE | 2021-07-31 15:02 | NUR ---
DISCHARGE NOTE: NILS reviewed chart and spoke with nursing and attending physician. Pt remains in Enhanced Isolation due to COVID. Pt is medically stable for discharge to [facility] status. Pt is tolerating tube feedings and is working with ST for swallowing. NILS was notified by [facility] wildlife rehabilitator that insurance has provided authorization and they can admit to rehab today. NILS updated attending physician. Discharge orders completed. NILS spoke with pt via phone to provide update and to notify of being made rehab status while on 3W. Pt will be able to move to [facility] once out of Enhanced Isolation. Pt verbalized understanding and is agreeable with plan. NILS also spoke with pt's , Katia, via phone to provide update and notify of pt being discharged to rehab status. Pt's is agreeable with plan. NILS informed pt's that rehab team meetings are on Wednesday afternoons. Rehab CM to follow up with pt/family to provide update and discuss discharge planning.
--- NOTE | 2021-07-31 15:40 | NUR ---
RECEIVED CALL FROM MILAGROS AT [facility]. Pt WAS APPROVED FOR ACUTE REHAB. PLANNING FOR ADMISSION TODAY HOWEVER Pt WILL BE STAYING ON 3W UNIT D/T CURRENT COVID+ STATUS UNTIL OFF PRECAUTIONS.
[2021-07-31 16:12] VITALS: BP 129/73
--- NOTE | 2021-07-31 18:34 | NUR ---
ASSUMED PATIENT CARE AT 0700. A/O X4. ON TF VIS PEG TUBE TOLERATED WELL. ON CHAIR MOST DAY. PROGRESSING TOWARDS POC GOALS.
--- NOTE | 2021-07-31 18:35 | NUR ---
ASSUMED PATIENT CARE AT 0700. ON COMFORT CARE. SLOWLY TOWARDS POC GOALS.
[2021-07-31 20:55] VITALS: BP 140/92
--- NOTE | 2021-08-01 04:19 | NUR ---
Patient has progressed towards outcome goals. Orders to discharge to Rehab today. Good pain control with Hydrocodone. Vital signs and rhythm stable.
[2021-08-01 04:50] VITALS: BP 137/87
[2021-08-01 07:20] VITALS: BP 113/79
== END 2021-07-31 16:00 | DRG 64 ==
LOC: ER 18:32 → 3W 21:38 → EROBS 21:38 → 2N 21:38 → 3W 07-25 18:15
PROVIDERS: Hospitalist; Nurse Practitioner Family; Psychiatry & Neurology Neurology; Psychiatry & Neurology Neuromuscular Medicine; Student in an Organized Health Care Education/Training Program; ADMIT Internal Medicine; ATTEND Internal Medicine
PROC: 0CJS8ZZ Inspection of Larynx, Via Natural or Artificial Opening Endoscopic (ICD-10-PCS; 2021-07-23)
PROC: 0DH68UZ Insertion of Feeding Device into Stomach, Via Natural or Artificial Opening Endoscopic (ICD-10-PCS; principal; 2021-07-29)
DX: I63.89 Other cerebral infarction (principal); U07.1 COVID-19; D68.59 Other primary thrombophilia; R13.10 Dysphagia, unspecified; G46.4 Cerebellar stroke syndrome; R29.810 Facial weakness; E78.5 Hyperlipidemia, unspecified; F10.10 Alcohol abuse, uncomplicated; I10 Essential (primary) hypertension; Z83.3 Family history of diabetes mellitus; Z82.49 Family history of ischemic heart disease and other diseases of the circulatory system; Z82.3 Family history of stroke; Z79.82 Long term (current) use of aspirin; Z79.899 Other long term (current) drug therapy; Z86.718 Personal history of other venous thrombosis and embolism
CPT/HCPCS: 10081; 10879; 62110; 62900

== ENCOUNTER 2021-07-31 14:05 | Inpatient (IN) | payer OTHER ==
[~2021-07-31] VITALS: Ht 167.6 cm; Wt 70.7 kg
--- NOTE | ~2021-07-31 | PLAN ---
[facility] [place] [address] REHAB UNIT PLAN OF CARE Name: NARENDRA DUFFY Room #: 503-P ADM IN M.R.#: [id number] Admission: 07/31/21 Attend Phys: Jigar Oviedo MD Discharge: Date of : 79 Report #: [id number] THIS REPORT FOR: cc: FAM - No family physician/PCP FAM - No family physician/PCP Jigar Oviedo MD ~ DATE OF SERVICE: 08/06/2021 The patient is seen back today in followup. He is in no distress. Temperature 36.7, pulse 65, respirations 18, blood pressure 109/66. He was just moved up from [facility] to the acute rehab [facility] on [address]. He is in good spirits. No calf swelling. By: 1130 26 Jigar Oviedo MD /nt
[~2021-07-31 14:05] MED LIST: ACETAMINOPHEN650 MG RECTAL; BAYER CHEWABLE81 MG PO; ENOXAPARIN40 MG/0.1 SUBQ; LIPITOR40 MG PER TUBE; MIRALAX17 GM PO; PLAVIX 75 MG TA75 M1 PER TUBE; VITAMIN B-1100 M2 PER TUBE; VITAMIN D325 MC2 PO; VITAMINC500 PO; ZINC SULFATE50 MG PO
[2021-07-31] MEDS ORDERED: PREDNISONE 10 M10 M1 PO (14:07)
[2021-07-31] MEDS ORDERED: PEPCID20 MG PO (14:09)
[2021-08-01 14:20] LABS: HEMATOCRIT 43.3 % (42.0-52.0); HEMOGLOBIN 14.8 gm/dL (14.0-18.0); MCH 29.6 pg (26.0-34.0); MCHC 34.3 g/dL (28.0-37.0); MCV 86.4 fL (80.0-100.0); RBC 5.01 mil/uL (4.50-6.00); RDW 12.1 % (10.5-14.5); WBC 13.8 thou/uL (4.0-11.0)
--- NOTE | 2021-08-01 14:27 | NUR ---
Chart review. Aaron spoke with valdez via phone call. Intro to cm, dcp and team meeting. Prior to hospital, he was independent. Living with his jf # [phone] and children. 1 step to enter, 14 to basement but doesn't have to go down to the basement. No dme, works outside the home. Drinks sometimes daily shots and use of marijuana in the past. No hh or rehab in the past. will cont. following as needed for dc needs. He currently staying on 3w for rehab.
[2021-08-01 14:34] LABS: CREATININE 0.8 mg/dL (0.7-1.3); POTASSIUM 4.6 mmol/L (3.5-5.1)
--- NOTE | 2021-08-01 19:35 | NUR ---
ASSUMED PATIENT CARE AT 0700. START ON REHAB. A/O X4. NOT ABLE TO TOLERATED ON BOULS TF WITH WATER FEELS LIKE WILL VOMIT. TF START ON CONTIUNELY. PATIENT HAD LARGE BM THEN TURN TO LIQUID STOOL. SLOWLY TOWARDS POC GOALS.
[2021-08-01 19:50] VITALS: BP 137/81
--- NOTE | 2021-08-02 06:16 | NUR ---
PROGRESS PT A/O X 4. LUNGS CLEAR, ON ROOM AIR, STILL UNABLE TO SWALLOW AND COUGHS FREQUENTLY TO CLEAR ORAL SECRETIONS, USING YANKUER TO REMOVE SPUTUM. TUBE FEEDING STOPPED AT 2200 PT FEELS FULL ABDOMEN SLIGHTLY FIRM AND SLIGHTLY DISTENDED. NO RESIDUAL NOTED AT 2200 AND 0530. PT REPORTED SEVERE HEARTBURN AND RATING ABDOMINAL PAIN A 10 ORDER FOR REGLAN Q6HRS IVP OBTAINED AND GIVEN WITH EFFECT PT STATED HEARTBURN HAD RESOLVED AND HIS ABDOMINAL PAIN WAS SLIGHTLY BETTER WITH THE REGLAN AND HYDROCODONE. ENCOURAGED SPLINTING WHEN COUGHING. TUBE FEEDING RESUMED AT 6AM AT 80CC/HR. VOIDING QS PT REPORTS DIARRHEA HAS STOPPED. ENCOURAGED PT TO PRACTICE HIS SWALLOWING EXERCISES MUCH HE CAN TOLERATE. CONTINUE POC.
[2021-08-02 07:52] VITALS: BP 123/80
[2021-08-02 12:42] LABS: ABSOLUTE NEUTROPHILS 12.9 thou/uL (1.4-8.2); BASOPHILS 0.1 % (0.0-2.0); EOSINOPHILS 0.4 % (0.0-3.0); HEMATOCRIT 39.8 % (42.0-52.0); HEMOGLOBIN 13.6 gm/dL (14.0-18.0); MCH 29.5 pg (26.0-34.0); MCHC 34.2 g/dL (28.0-37.0); MCV 86.2 fL (80.0-100.0); MONOCYTES 8.9 % (1.0-8.0); PLATELET COUNT 298 thou/uL (150-400); POLYS 81.6 % (36.0-66.0); RBC 4.61 mil/uL (4.50-6.00); RDW 12.2 % (10.5-14.5); WBC 15.8 thou/uL (4.0-11.0)
[2021-08-02 13:01] LABS: CALCIUM 8.5 mg/dL (8.5-10.1); CREATININE 0.7 mg/dL (0.7-1.3); MAGNESIUM 2.2 mg/dL (1.8-2.4); TOTAL BILIRUBIN 0.5 mg/dL (0.2-1.0); TOTAL PROTEIN 8.3 g/dL (6.4-8.2)
--- NOTE | 2021-08-02 14:04 | NUR ---
I have reviewed the documentation by Sandrita Solares from 08/01/21 to 08/02/21 and I concur with it. HELEN MARSH
[2021-08-02 15:52] VITALS: BP 139/82
--- NOTE | 2021-08-02 18:07 | NUR ---
assumed care of pt at 0700. pt aox4, complains of abdominal pain - partial relief with hydrocodone. therapy throughout the day. occasionally complains of nausea. tube feed running per order. no signicant residuals. up w/ sba. productive cough - self suctions.
[2021-08-02 19:41] VITALS: BP 139/80
--- NOTE | 2021-08-03 03:00 | NUR ---
PROGRESS PT NOT PROGRESSING INCREASED ABDOMINAL PAIN AND HEARTBURN . BS HYPOACTIVE PT RATING PAIN A 10 OUT OF 10. ONETIME DOSE OF FENTANYL 25 MCG ORDERED AND GIVEN WITH SOME EFFECT. LUCILA TOURE AND NOTIFIED OF PURULENT FOUL SMELLING DRAINAGE. CT OF ABDOMEN WITH CONTRAST ORDERED AND COMPLETED AND ZOSYN ORDERED AND ADMINISTERED. PT MADE NPO AND PEG TUBE PLACED TO LIWS SUCTION. HEARTBURN IS SLOWLY RESOLVING WITH NPO AND SUCTION. CONTINUE TO MONITOR.
[2021-08-03 06:00] VITALS: BP 115/80
[2021-08-03 06:05] LABS: BASOPHILS 0.1 % (0.0-2.0); EOSINOPHILS 0.2 % (0.0-3.0); HEMATOCRIT 39.5 % (42.0-52.0); HEMOGLOBIN 13.7 gm/dL (14.0-18.0); MCHC 34.7 g/dL (28.0-37.0); MCV 86.4 fL (80.0-100.0); MONOCYTES 5.5 % (1.0-8.0); PLATELET COUNT 327 thou/uL (150-400); POLYS 83.2 % (36.0-66.0); RBC 4.57 mil/uL (4.50-6.00); RDW 12.1 % (10.5-14.5); WBC 15.7 thou/uL (4.0-11.0)
[2021-08-03 06:51] LABS: CALCIUM 8.9 mg/dL (8.5-10.1); CREATININE 0.8 mg/dL (0.7-1.3); MAGNESIUM 2.1 mg/dL (1.8-2.4); POTASSIUM 4.5 mmol/L (3.5-5.1)
--- NOTE | 2021-08-03 07:04 | NUR ---
pt reports he feels much better pain improved and heartburn resolved.
[2021-08-03 07:27] VITALS: BP 121/75
[2021-08-03 15:57] VITALS: BP 108/72
--- NOTE | 2021-08-03 19:32 | NUR ---
ASSUMED PATIENT CARE AT 0700. A/O X4. PEG TUBE TO LIS. CHANGED PEG DRESSING TWO TIMES. VSS. AFEBRILE. SLOWLY TOWARDS POC GOALS.
[2021-08-03 20:00] VITALS: BP 131/87
--- NOTE | 2021-08-04 01:21 | NUR ---
PROGRESS PT PROGRESSING PAIN HAS IMPROVED. NAUSEA RESOLVED. TUBE FEEDING STILL ON HOLD AND PEG TUBE REMAINS TO SUCTION MODERATE OUTPUT. ABDOMEN IS LESS DISTENDED AND SOFTER TO TOUCH PEG SITE IS METEOROLOGICAL OBSERVER BUT DRAINAGE HAS DECREASED AND LOOKS LESS PUS FILLED THAN PREVIOUS SHIFT. BS REMAIN HYPOACTIVE NO BM TODAY BUT VOIDING QS. IVF'S INFUSING INTO LAC WITHOUT DIFFICULTY, IV ANTIBIOTICS CONTINUE. PT STILL WEAK AND UNSTEADY CALLS FOR HELP APPROPRIATELY UP WITH SBA JUST NEEDS CONTACT GUARD AND ASSISTANCE WITH EQUIPMENT. SELF SUCTIONS SECRETIONS AND PERFORMS MOST ADL'S INDEPENDENTLY. VSS CONTINUE TO ASSIST NEEDED. PLAN IS TO TRANSFER TO REHAB UNIT WHEN OUT OF ISOLATION.
[2021-08-04 06:23] VITALS: BP 112/78
[2021-08-04 07:59] VITALS: BP 117/79
[2021-08-04 15:42] VITALS: BP 116/76
--- NOTE | 2021-08-04 18:14 | NUR ---
ASSUMED PATIENT CARE AT 0700, A/O X4. RESTARTED TF AT 1630 RATE AT 4OML/HR. PEG SITE CARE TWO TIMES. DENIES PAIN. BM TODAY. WORK WITH PT/OT/ST. VSS. SLOWLY TOWARDS POC GOALS.
[2021-08-04 21:12] VITALS: BP 120/82
[2021-08-05 04:17] VITALS: BP 119/78
--- NOTE | 2021-08-05 06:39 | NUR ---
Up in the recliner chair till around 2200. In good spirits and stated he's feeling a lot better. Assisted back to bed . He slept fair during the night then woke up stating his abdomen is sore. Hydrocodone given with some relief. Kept NPO , TF infusing with zero gastric residual.Up to commode and had bm x1. Voided per urinal. Cont. on enhanced precaution, afebrile. Making some progress towards care plan goals.
[2021-08-05 07:51] VITALS: BP 115/79
--- NOTE | 2021-08-05 13:34 | NUR ---
team meeting, recommendation: Peg tub feeding on Room air currently. IV ABX and IVF. Still fatigue easily. po trial of diet and will need repeat video swallow. DC 08/15 ( pt, ot, st, nursing).
[2021-08-05 16:18] VITALS: BP 128/77
--- NOTE | 2021-08-05 18:23 | NUR ---
ASSUMED PATIENT CARE AT 0700. A/O X4. TF AT 40ML/HR. 5-10ML RESIDUAL NOTED. THREE BM. SLOWLY TOWARDS POC GOALS.
[2021-08-05 18:29] VITALS: BP 129/85
--- NOTE | 2021-08-05 18:31 | NUR ---
PT ARRIVED FROM ROOM 359 VIA WHEELCHAIR AT 1815. NO NEEDS IDENTIFIED, YAUNKER SUCTION AT BEDSIDE IF NEEDED PT TUBE FEEDING GOING AT 40ML/H. PT CALL LIGHT IN REACH.
[2021-08-05 19:22] VITALS: BP 144/102
[2021-08-05 20:32] VITALS: BP 135/92
--- NOTE | 2021-08-06 05:43 | NUR ---
ASSUMED CARE AT 1900 OF 08/05. PATIENT IS A&OX4. REMAINS NPO AND ON CONTINUOUS FEED OF JEVITY 1.5 VIA PEG TUBE. PEG TUB SITE DRESSING REPLACED, SMALL AMOUNT OF BLOODY DRAINAGED NOTED ON DRESSING. PATIENT REPORTS TENDERNESS TO SITE AND SLIGHT ABDOMINAL DISCOMFORT. BOWEL SOUNDS PRESENT AND HYPOACTIVE.ABDOMEN SOFT. FEED RATE AT HS 40ML/HR, AT 0515 GASTRIC RESIDUAL VOLUME WAS 10CC, WHICH WAS RETURNED AND FLUSHED WITH 60CC OF WATER. RATE INCREASED TO 50ML/HR THIS AM. PATIENT DENIES SOB, BUT INTERMITTENT PRODUCTIVE COUGH PRESENT. YANKER SUCTION AT BEDSIDE TO BE USED PRN. CONTINUES TO RECEIVE IV ANTIBIOTICS VIA LEFT UPPER ARM IV SITE. NO S/S OF INFECTION OR INFITRATION NOTED. MINIMAL/SUPERVISION ASSIST TO TRANSF[place] [facility] [place] AND HAVE A BM DURING SHIFT. APPEARED TO BE SLEEPING DURING HOURLY ROUNDS, FALL PRECAUTIONS IN PLACE. CALL LIGHT WITHIN REACH. WILL CONTINUE TO MONITOR.
[2021-08-06 07:15] VITALS: BP 109/66
--- NOTE | 2021-08-06 13:58 | NUR ---
I have reviewed the documentation by Sandrita Solares from 08/04/21 to 08/05/21 and I concur with it. HELEN MARSH
--- NOTE | 2021-08-06 18:02 | NUR ---
Assumed pt care at 0700. pt was alert and oriented x4. Calm and cooperative with care. Took meds crushed, via PEG TUBE. Pt is NPO. Pt is on continous feed of Jevity 1.5 via PEG TUBE. PEG tube site dressing changed THIS SHIFT. Pt had small amount of bloody drainage around dressing. Hypoactive bowel sounds. IV antibiotic administered via left upper arm. Pt uses a urinal. Pt is a stand by assist with transfer. pt had a bowel movement this shift. Pt was able to get out of bed to the w/c chair. pt refused lactulose due to loose stool. pt tolerating feed at 55ml per hour. pt uses bed side suction for saliva secretions. Will continue to monitor pt.
[2021-08-06 20:00] VITALS: BP 119/75
--- NOTE | 2021-08-07 06:07 | NUR ---
PT REMAIN ALERT AND ORIENT TIMES FOUR. LEFT SIDED WEAKNESS. LEFT EYE WEAK AND AT TIMES APPEARS TO CLOSE ON IT'S OWN. JEVITY 1.5 INFUSING PER PEG WITHOUT DIFFICULTY. NEW TF BAGS HUNG. NEW IV INITIATED IN LEFT FA. IV ANTIBX INFUSING WELL. USES YONKER FOR ORAL SECRETIONS, WHITE/THICK SECRETIONS. NO BM THIS SHFIT,. PT STATE THAT HIS RIGHT HAND STILL CONTINUES WITHOUT SENSATION. TIMED OUT FOR COVID +. SLOW PROGRESS TOWARDS DC GOALS. WILL CONTINUE TO MONITOR.
[2021-08-07 08:00] VITALS: BP 139/67
--- NOTE | 2021-08-07 11:30 | NUR ---
ASSUMED CARE AT 0700. PATIENT IS ALERT AND ORIENTED X4. PATIENT HAS LEFT SIDED WEAKNESS. PATIENT REMAINS NPO. PATIENT HAS PEG TUBE WITH JEVITY 1.5 ERROL INFUSING AT 55CC/HR, WITH 150 CC WATER BOLUS Q 6 HOURS. PATIENT HAS S.L. IN HIS LEFT FORARM. IV SITE WITHOUT REDNESS OR SWELLLING. PATIENT USING YANKERS FOR ORAL SECRETIONS. LUNGS ARE CLEAR AND DEIMISHED. ABD IS SOFT WITH BSX4. PATIENT G-TUBE CONTINUES TO HAVE SOME BLOOD OOZING FROM THE INCISION SITE. DRESSING CHANGED. NEW DRAIN SPONGE APPLIED. FALL AND SAFETY PROTOCOLS IN PLACE. DENIES PAIN AT THIS TIME. CONTINUES TO PROGRESS SLOWLY TOWARDS D/C GOALS. WILL CONTINUE TO MONITER.
[2021-08-07 19:09] VITALS: BP 124/83
[2021-08-08 03:37] LABS: ABSOLUTE NEUTROPHILS 5.8 thou/uL (1.4-8.2); BASOPHILS 0.4 % (0.0-2.0); HEMATOCRIT 36.9 % (42.0-52.0); HEMOGLOBIN 12.7 gm/dL (14.0-18.0); LYMPHOCYTES 27.7 % (24.0-44.0); MCHC 34.4 g/dL (28.0-37.0); MCV 87.4 fL (80.0-100.0); PLATELET COUNT 435 thou/uL (150-400); POLYS 61.9 % (36.0-66.0); RBC 4.22 mil/uL (4.50-6.00); RDW 12.3 % (10.5-14.5); WBC 9.3 thou/uL (4.0-11.0)
[2021-08-08 04:01] LABS: CALCIUM 9.1 mg/dL (8.5-10.1); CREATININE 0.8 mg/dL (0.7-1.3); POTASSIUM 4.3 mmol/L (3.5-5.1)
--- NOTE | 2021-08-08 05:28 | NUR ---
PATIENT CARE WAS RESUMED AT 0100. ALERT, JEVITY 1.5 CONTINOUSLY INFUSSING AT THE RATE OF 55/HR. PATIENT DENIES DISCOMFORT. IV NOTED TO HIS LFA. CONTINUE CARE
[2021-08-08 07:45] VITALS: BP 110/73
[2021-08-08 08:00] VITALS: BP 110/73
--- NOTE | 2021-08-08 08:09 | NUR ---
Visited with valdez pierson/rosa maria coy, agree on cont. therapy and anticipated dc on 08/15/21
--- NOTE | 2021-08-08 11:40 | NUR ---
If PO intake not initiated following video swallow, increase Jevity 1.5 to goal 65 ml/hr x 20 hrs with 150 ml H2O q 4hrs to meet 90-100% est nutrition needs.
--- NOTE | 2021-08-08 16:40 | NUR ---
cm notified that insurance not approving day past wed, and psych np left message with insurance to completed p2p. [place]en also notified by nurse community health worker valdez will dc next 08/12. Will cont following as needed for dc needs. Unable to visit with valdez r/t going for wheel chair walk with his here visiting.
--- NOTE | 2021-08-08 18:26 | NUR ---
ASSUMED CARE OF PT AT 0700. PT A&OX4. PT LEFT SIDE EYE DROOP. PT UP WITH SBA JEN AND WALKER. PT WORKED WITH THERAPIES TODAY. PT DIET NOW UPGRADED TO MECANICAL SOFT, AND THIN LIQUIDS. NO TUBE FEEDINGS AT THIS TIME. PT TAKES PILLS ONE AT A TIME WITH THIN LIQUIDS. WILL CONTINUE TO MONITOR.
[2021-08-08 20:45] VITALS: BP 142/82
--- NOTE | 2021-08-09 01:44 | NUR ---
ASSUMED CARE AT 1900 OF 08/08. PATIENT IS A&OX4, DENIES PAIN OR SOB. PATIENT TOLERATED PILLS WHOLE, ONE AT A TIME, WITH THIN LIQUIDS. PEG TUBE DRESSING CHANGED DURING SHIFT. STAND BY ASSIST WITH TRANSFERS AND AMBULATION, USING WALKER. FALL PRECAUTIONS IN PLACE, CALL LIGHT WITHIN REACH. WILL CONTINUE TO MONITOR.
[2021-08-09 08:00] VITALS: BP 112/75
--- NOTE | 2021-08-09 10:18 | NUR ---
ASSUMED CARE AT 0700. PATIENT IS ALERT AND ORIENTED X4. PATIENT HAS LEFT SIDED WEAKNESS. PATIENT LUNGS ARE CLEAR AND DEMINISHED. ABD IS SOFT WITH BSX4. PATIENT IS UP WITH ASSIST OF 1 STAFF WITH SBA. PATIENT HAS G.T. THAT IS PATENT AND INTACT. G.T. FLUSHED WITH 30CC H20 BOLUS. PATIENT FLUID INTAKE IS ADEQUATE. DRAIN SPONGER CHANGED, SOME DRIED BLOOD NOTED ON DRAIN SPONGE. T.F. STOPPED, PATIENT IS EATING 100% OF [facility] SOFT/CHOPPED DIET WITH THIN LIQUIDS. FALL AND SAFETY PROTOCOLS IN PLACE. DENIES PAIN AT THIS TIME. CONTINUES TO PROGRESS TOWARDS D/C GOALS. WILL CONTINUE TO MONITER.
[2021-08-09 20:14] VITALS: BP 116/72
--- NOTE | 2021-08-10 02:40 | NUR ---
assumed care approx 1900 evening 08/09. pt alert and oriented x4 sitting on couch with at change of shift. pt in good mood, denies complaints. pt took hs meds with water one at a time tolerating well. pt sleeping in large bed in apt appears to be sleeping well. call light in reach. will continue to monitor.
[2021-08-10 07:00] VITALS: BP 136/103
--- NOTE | 2021-08-10 07:54 | NUR ---
ASSUMED CARE AT 0700. PATIENT IS ALERT AND ORIENTED X4. PATIENT MCKEON'S, DECK HAND ARE EQUAL. LUNGS ARE CLEAR AND DEMINISHED. ABD IS SOFT WITH BSX4. G.T. INTACT. DRESSING CHANGED TO G.T. SITE. UP TO THE BATHROOM TO VOID RE COLORED URINE. UP WITH SBA WITH WALKER TO SITTING AREA. FALL AND SAFETY PROTOCOLS IN PLACE. DENIES PAIN. CONTINUES TO PROGRESS TOWARDS D/C GOALS. WILL CONTINUE TO MONITER.
[2021-08-10 19:40] VITALS: BP 138/78
--- NOTE | 2021-08-11 00:33 | NUR ---
ASSUMED CAR AT 1900 OF 08/10. PATIENT IS A&OX4, DENIES PAIN OR SOB. INTERMITTENT PRODUCTIVE COUGH, YANKER SUCTION AT BEDSIDE TO BE USED PRN. PEG TUBE DRESSING CHANGED, SMALL AMOUNT OF SEROUSANGUINOUS DRAINAGE NOTED ON OLD DRESSING. PATIENT REPORTED SOME TENDERNESS TO SITE DURING DRESSING CHANGE. STANDBY ASSIST WITH TRANSFERS AND AMBULATION, USING WALKER. TOLERATED ALL ORAL MEDS, WHOLE ONE AT TIME WITH THIN LIQUIDS. FALL PREACAUTIONS IN PLACE, CALL LIGHT WITHIN REACH. WILL CONTINUE TO MONITOR.
[2021-08-11 07:15] VITALS: BP 120/85
--- NOTE | 2021-08-11 10:39 | NUR ---
ASSUMED CARE AT 0700. PATIENT IS ALERT AND ORIENTED X4. PATIENT MCKEON'S, SALES DATA ANALYST ARE EQUAL. PATIENT HAS LEFT SIDED WEAKNESS. PATIENT C/O LEFT EYE BLURRINESS. LUNGS ARE CLEAR AND DEMINISHED. ABD IS SOFT WITH BSX4. PATIENT IS NOW MOD/I IN ROOM. G.T. IS PATENT AND INTACT. PATIENT G.T. SITE CLEANED AND NEW DRAIN SPONGE APPLIED. G.T. FLUSHED. UP IN CHAIR FOR MEALS. FALL AND SAFETY PROTOCOLS IN PLACE. DENIES PAIN AT THIS TIME. CONTINUES TO PROGRESS TOWARDS D/C GOALS. WILL CONTINIUE TO MONITER.
--- NOTE | 2021-08-11 12:20 | NUR ---
Nutrition: Please obtain accurate weight on patient.
[2021-08-11 19:23] VITALS: BP 125/77
--- NOTE | 2021-08-11 23:47 | NUR ---
ASSUMED CARE AT 1900 OF 08/11, PATIENT IS A&OX4. DENIES PAIN OR SOB. PEG TUBE SITE WAS CLEANED AND DRESSING CHANGE PERFORMED. EDUCATION ABOUT CHANGING DRESSING PROVIDED, PATIENT EXPRESSES COMPREHENSION. TOLERARED ORAL MEDICATION WHOLE ONE AT A TIME WITH THIN LIQUIDS. PATIENT IS MOD/I IN ROOM, ABLE TO MAKE NEEDS KNOWN. CALL LIGHT WITHIN REACH, WILL CONTINUE TO MONITOR.
[2021-08-12 07:15] VITALS: BP 123/78
[2021-08-12 08:00] VITALS: BP 123/78
[2021-08-12] MEDS ORDERED: ZINC SULFATE50 MG PO ×2 (08:27→09:32)
[2021-08-12] MEDS ORDERED: VITAMIN B-1100 M2 PER TUBE (08:27)
[2021-08-12] MEDS ORDERED: PEPCID20 MG PO ×2 (08:27→09:32)
[2021-08-12] MEDS ORDERED: LIPITOR40 MG PER TUBE (08:27)
[2021-08-12] MEDS ORDERED: VITAMIN D325 MC2 PO (08:27)
[2021-08-12] MEDS ORDERED: PLAVIX 75 MG TA75 M1 PER TUBE (08:27)
[2021-08-12] MEDS ORDERED: MIRALAX17 GM PO (08:27)
[2021-08-12] MEDS ORDERED: BAYER CHEWABLE81 MG PO ×2 (08:27→12:29)
[2021-08-12] MEDS ORDERED: VITAMINC500 PO ×2 (08:27→09:32)
[2021-08-12 09:04] VITALS: BP 123/78
--- NOTE | 2021-08-12 09:09 | NUR ---
dc home today. checking with 5 n staff to see if he going to need any dme or therapy at dc.
[2021-08-12] MEDS ORDERED: VITAMIN B-1100 M2 PO (09:32)
[2021-08-12] MEDS ORDERED: PLAVIX 75 MG TA75 M1 PO ×2 (09:32→12:29)
[2021-08-12] MEDS ORDERED: LIPITOR40 MG PO ×2 (09:32→12:29)
--- NOTE | 2021-08-12 11:42 | NUR ---
ASSUMED CARE OF PT AT 0700. PT MOD I IN ROOM. PT EDUCATED ON PEG TUBE FLUSHING DAILY COMMUNICATES UNDERSTANDING. PT EDUCATED ON MEDICATION REGIMAN FOR DC. WALKER TO BE ISSUED TO PT BEFORE DC TODAY. WILL GO HOME WITH HH.
== END 2021-08-12 12:45 | disposition home health service (06) | DRG 64 ==
LOC: 3W 14:05 → SBH 15:16
PROVIDERS: Hospitalist; Internal Medicine; Nurse Practitioner; Nurse Practitioner Family; ADMIT Physical Medicine & Rehabilitation; ATTEND Physical Medicine & Rehabilitation
DX: I63.9 Cerebral infarction, unspecified (principal); U07.1 COVID-19; L03.818 Cellulitis of other sites; R13.10 Dysphagia, unspecified; E78.5 Hyperlipidemia, unspecified; I10 Essential (primary) hypertension; B95.4 Other streptococcus as the cause of diseases classified elsewhere; F10.10 Alcohol abuse, uncomplicated; F12.90 Cannabis use, unspecified, uncomplicated; Z86.718 Personal history of other venous thrombosis and embolism; Z86.16 Personal history of COVID-19; Z86.73 Personal history of transient ischemic attack (TIA), and cerebral infarction without residual deficits; Z93.1 Gastrostomy status; Z79.82 Long term (current) use of aspirin; Z79.899 Other long term (current) drug therapy
CPT/HCPCS: 10112